=== PATIENT | female | born 1945 | race Caucasian/White ===

== ENCOUNTER → 2020-07-09 | Outpatient (CLI) | payer MEDICARE, BC ==
[2020-07-09 13:05] LABS: Basophils # (A) 0.1 k/uL (0-0.2); Basophils % (A) 1 %; Eosinophils # (A) 0.3 k/uL (0-0.7); Eosinophils % (A) 8 %; HCT 40.5 % (34.0-46.0); HGB 13.5 gm/dL (11.4-16.0); Lymphocytes # (A) 1.3 k/uL (1.0-4.8); Lymphocytes % (A) 39 %; MCH 33.4 pg (25.0-35.0); MCHC 33.3 g/dL (31.0-37.0); MCV 100.3 fL (80.0-100.0); Mean Platelet Volume 8.5; Monocytes # (A) 0.3 k/uL (0-1.0); Monocytes % (A) 8 %; Neutrophils # (A) 1.4 k/uL (1.3-7.7); Neutrophils % (A) 40 %; Platelet Count 185 k/uL (150-450); RBC 4.04 m/uL (3.80-5.40); RDW 12.4 % (11.5-15.5); WBC 3.5 k/uL (3.8-10.6)
[2020-07-09 13:19] LABS: INR 0.9 (<1.2); Partial Thromboplastin Time 23.1 sec (22.0-30.0); Prothrombin Time 9.7 sec (9.0-12.0)
[2020-07-09 13:29] LABS: Albumin 4.1 g/dL (3.5-5.0); Calcium 9.3 mg/dL (8.4-10.2); Potassium 4.9 mmol/L (3.5-5.1); Total Bilirubin 0.7 mg/dL (0.2-1.3); Total Protein 6.8 g/dL (6.3-8.2)
[2020-07-09 13:46] LABS: Appearance,Urine Clear (Clear); Bacteria,Urine Few /hpf; Bilirubin,Urine Negative (Negative); Blood,Urine Negative (Negative); Color,Urine Light Yellow; Glucose,Urine (UA) Negative (Negative); Ketones,Urine Negative (Negative); Leukocyte Esterase,Urine Small (Negative); Nitrite,Urine Negative (Negative); Protein,Urine Negative (Negative); RBC,Urine <1 /hpf (0-5); Specific Gravity,Urine 1.009 (1.001-1.035); Squamous Epithelial Cell,Urine 1 /hpf (0-4); Urobilinogen,Urine <2.0 mg/dL (<2.0); WBC,Urine 2 /hpf (0-5)
[2020-07-09 14:39] LABS: T4, Free (Free Thyroxine) 1.28 ng/dL (0.78-2.19)
== END | disposition home or self-care (01) ==
LOC: LABPAT 11:10
PROVIDERS: ATTEND Orthopaedic Surgery
DX: Z01.818 Encounter for other preprocedural examination (principal); Z01.812 Encounter for preprocedural laboratory examination; Z01.810 Encounter for preprocedural cardiovascular examination; Z51.81 Encounter for therapeutic drug level monitoring; M17.12 Unilateral primary osteoarthritis, left knee; Z79.01 Long term (current) use of anticoagulants; E03.9 Hypothyroidism, unspecified; E78.2 Mixed hyperlipidemia
CPT/HCPCS: 36415; 80053; 80061; 81001; 84439; 84443; 85025; 85610; 85730; 87070

== ENCOUNTER → 2020-07-09 | Outpatient (CLI) | payer MEDICARE, BC | END | disposition home or self-care (01) | LOC: LABWHC1 11:07 | PROVIDERS: ATTEND Internal Medicine | DX: Z53.9 Procedure and treatment not carried out, unspecified reason (principal) ==

== ENCOUNTER 2020-07-29 07:17 | Day surgery (SDC) | payer MEDICARE, BC ==
[2020-07-16 12:59] VITALS: BMI 36.3
[~2020-07-29 07:17] MED LIST: ACETAMINOPHEN TAB 500 MG TAB PO ONE; GABAPENTIN 300 MG CAP PO ONE; HYDROmorphone 0.5 MG/0.5 ML SYRINGE IVP PRN; MELOXICAM 7.5 MG TAB PO ONE; ONDANSETRON 4 MG/2 ML VIAL IVP ONE; TRANEXAMIC ACID 1,000 MG in SODIUM CHLORIDE 0.9% 100 ML IVPB ONE
[2020-07-29] MEDS ORDERED: MIDAZOLAM 2 MG/2 ML VIAL IV ONE (08:15)
[2020-07-29] MEDS ORDERED: DEXAMETHASONE SOD PHOSPHATE 4 MG/ML 1 ML VIAL IV ONE (08:35)
[2020-07-29] MEDS: LACTATED RINGERS 1,000 ML IV SCH (08:37)
[2020-07-29] MEDS ORDERED: HYDROmorphone 0.5 MG/0.5 ML SYRINGE IVP PRN ×3 (08:46)
[2020-07-29] MEDS ORDERED: NA PHOS,M-B/NA PHOS,DI-BA 133 ML ENEMA RECTAL PRN (08:46)
[2020-07-29] MEDS ORDERED: NALOXONE 0.4 MG/ML 1 ML VIAL IV PRN (08:46)
[2020-07-29] MEDS ORDERED: MAGNESIUM HYDROXIDE 2,400 MG/10 ML CUP PO PRN (08:46)
[2020-07-29] MEDS ORDERED: HYDROcodone/APAP 5-325MG 1 EACH TAB PO PRN (08:46)
[2020-07-29] MEDS ORDERED: bisacodyL 10 MG SUPP RECTAL PRN (08:46)
[2020-07-29] MEDS ORDERED: ONDANSETRON 4 MG/2 ML VIAL IVP PRN (08:46)
[2020-07-29] MEDS ORDERED: PROPOFOL 10 MG/ML 20 ML VIAL IV ONE (09:02)
[2020-07-29] MEDS ORDERED: SODIUM CHLORIDE 0.9% 100 ML BAG ONE (09:02)
[2020-07-29] MEDS ORDERED: MIDAZOLAM 2 MG/2 ML VIAL ONE (09:02)
[2020-07-29] MEDS ORDERED: fentaNYL (PF) 50 MCG/ML 2 ML AMP ONE (09:02)
[2020-07-29] MEDS ORDERED: TRANEXAMIC ACID 1,000 MG/10 ML VIAL ONE (09:02)
[2020-07-29] MEDS: ROPIVACAINE 246.25 MG, EPINEPHrine 0.5 MG, KETOROLAC 30 MG, cloNIDine HCL/PF 80 MCG, WA... MISCELLANE ONE ×10 (09:06→10:04)
[2020-07-29] MEDS ORDERED: ceFAZolin 3,000 MG in SODIUM CHLORIDE 0.9% IRRIGATIO 3,000 ML IRRIGATION ONE (09:07)
[2020-07-29] MEDS ORDERED: ROPIVACAINE 0.2%-NS ON-Q PUMP 1,090 MG, EMPTY PAIN BALL 1 EACH MISCELLANE PRN (09:43)
--- NOTE | 2020-07-29 09:46 | P.ANPRN ---
Procedure Note - Anesthesia - Nerve Block Performed Left Adductor Canal Infusion Time Out Performed: Yes Date of Procedure: 07/29/20 Procedure Start Time: 08:14 Procedure Stop Time: 08:24 Location of Patient: PreOp Indication: Acute Post-Operative Pain, Requested by Surgeon Sedation Type: Sedate with meaningful contact maintained Preparation: Sterile Prep, Sterile Dressing Position: Supine Catheter: Indwelling Needle Types: Pajunk Needle Gauge: 21 Ultrasound used to visualize needle placement: Yes Ultrasound used to observe medication spread: Yes Blood Aspirated: No Pain Paresthesia on Injection Noted: No Resistance on Injection: Normal Image Stored and Saved: Yes Events: Uneventful and Well Tolerated (ropi .5% 20 cc plus dexamethasone 4mg)
--- NOTE | 2020-07-29 10:16 | P.OP ---
Date of Procedure: 07/29/20 Preoperative Diagnosis: Severe osteoarthritis left knee Postoperative Diagnosis: Severe osteoarthritis left knee Procedure(s) Performed: Left total knee arthroplasty Implants: Velasquez [employer] Nephew Journey II CR Oxinium cruciate retaining femoral component size 5, left Velasquez [employer]hew Journey left nonporous tibial baseplate size 3 Velasquez [employer] Nephew Journey II, XLPE Deep Dished articular insert, size 10 mm, Size 3-4 left Vel[employer] Journey BCS resurfacing oval patellar component, 29 mm All components were cemented using Palacos R bone cement.. The articulation is Oxinium on polyethylene. Anesthesia: spinal Surgeon: Jean-Pierre Wallace Patent Counsel #1: Gaby Olivas Estimated Blood Loss (ml): 30 Pathology: other (Bone and cartilage) Condition: stable Disposition: PACU Indications for Procedure: After failure of conservative treatment we discussed the surgical and nonsurgical treatment options at length. Patient wishes to proceed with a total knee arthroplasty. Complications specific to this procedure were discussed at length, including but not limited to infection, bleeding, stiffness, and nerve injury. Covid-19 was also discussed at length with the patient, and they are aware of the current policies and procedures. The patient was given the option of delaying surgery, but they elect to proceed knowing these risks. Patient is aware of all these complications and informed consent was obtained Operative Findings: The operative findings are consistent with severe osteoarthritis of the left knee Description of Procedure: Patient was seen in the preoperative area consent was reviewed and operative site was marked with a skin marker. An adductor canal pain catheter was placed by anesthesia in the preoperative area. Patient was then brought to the operating room and given preoperative antibiotics intravenously. A spinal anesthetic was administered by the anesthesia department. A tourniquet was placed on the upper thigh and the lower extremity was prepped and draped in usual sterile fashion. A gram of transexamic acid was given. A universal timeout was then performed which confirmed the patient's name, surgical site, ALLERGIES, and consent. The lower extremity was then exsanguinated and tourniquet was inflated to 250 mmHg. A standard and anterior midline approach to the knee was performed. The skin and subcutaneous tissue was dissected down to the patellar tendon. A medial parapatellar arthrotomy was then performed. The knee was then extended, the patellar was everted, and the knee was again flexed. The patellar fat pad was removed in order to enhance exposure. Anterior horns of both menisci were excised, and a release was performed to the posterior medial aspect of the knee. On gross visual inspection, there was complete loss of articular cartilage in the medial and patellofemoral joint spaces. There was also significant cartilage damage in the lateral compartment. There were multiple periarticular osteophytes which were then removed with a Ronguer. The femoral canal was then opened with the 9.5 mm intramedullary drill. The 8 mm intramedullary cintia was then inserted into the femoral canal. The distal femoral cutting guide was then placed and set for 5 of valgus. The distal femoral cutting block was then pinned in place. The intramedullary cintia was then removed, and the distal femur was then cut. The cutting block was then removed and the cut was checked for symmetry. Next, the sizing guide was then placed and set for 3 external rotation based off of the epicondylar axis and Whitesides line. Pins were then placed and the drill holes, and the femur was sized with the sizing stylus. The pins were then removed, and the sizing guide was then removed. The spikes of the femoral block was then placed into the predrilled holes, and malleted into place. Two 45 mm pins were then placed into the fixation holes on the cutting block. An edison wing was then used to ensure there would be no notching with the anterior cut. The anterior condyles were cut without notching. The anterior cord cut was then performed, followed by the posterior cut, posterior chamfer cut, and the anterior chamfer cut. The collateral ligaments were protected during the entire process. The cutting block was then removed, and the femoral canal was plugged with autologous bone. Attention was then directed to the tibia. The remaining ACL was removed with a Ronguer, and the tibia was then gently subluxed forward with a large bent knee retractor. Any remaining menisci was excised. The posterior lateral corner was cauterized in order to cauterize the lateral geniculate artery. The extra medullary tibial cutting guide was then placed, set for the appropriate rotation, slope, and depth of resection. The proximal tibia cutting guide was then pinned in place. Proximal tibia was then cut and sized. Next trials were then placed with the appropriate-sized insert. The knee was able to fully extend and flex to 130 and was stable throughout all range of motion. The knee was then extended, patella everted. Patella was then measured, and then using an osteotomy guide, the patella was cut at the appropriate level. The patella was then measured and drilled and the patella trial was then placed. The knee was then taken through range of motion with the patella trial and the patella tracked normally. The knee was then extended patella trial was then removed and the patella was everted. Knee was then flexed and lug holes were drilled through the femoral trial and the femoral trial was then removed. The tibial was then exposed, and the tibial broach guide was then pinned in place after it was set for the appropriate rotation to allow for the most coverage without overhang. The tibia was then reamed and broached. The cut surfaces of bone were then irrigated with pulsatile lavage. The posterior structures were injected with the ropivacaine solution. The knee was also irrigated with Irrisept solution. The components were then opened, the cement was mixed, and the components were then cemented in place. The cement was allowed to harden with the knee in full extension. While the cement was hardening, the remaining soft tissues were then injected with a ropivacaine solution, which consisted of 246.25 mg of ropivacaine, 0.5 mg of epinephrine, 30 mg of Toradol, 80 g of clonidine, and 48.45 mL of sterile water, for a total of 100 mL of fluid injected. After the cemented hardened. The tourniquet was released, and hemostasis was obtained. A second gram of transexamic acid was given. The knee was again irrigated. The knee was again taken through range of motion and found to be stable throughout all range of motion of 0-130, and the patella tracked normally. The fascia was then closed with #2 strata fix suture. The subcutaneous tissue was closed with 3-0 Vicryl and 3-0 strata fix. Dermabond glue was used for the skin and placed with the knee in flexion. The patient was placed in a sterile silver dressing. Patient was then transferred to recovery room in stable condition. The assistant professor of music DEMETRIUS Hogan was required due the complexity surgery and the need for a skilled surgical scrub technician. She assisted in positioning, draping, retraction, and closure of the wound.
--- NOTE | 2020-07-29 11:15 | XR ---
EXAMINATION TYPE: XR knee limited LT DATE OF EXAM: 07/29/2020 CLINICAL HISTORY: Left knee pain and arthritis status post total knee replacement. TECHNIQUE: Portable AP and crosstable lateral views of the left knee are obtained immediately postop eratively. COMPARISON: None FINDINGS: Metallic hardware from total left knee arthroplasty is seen and appears satisfactory in al ignment and position. There is evidence of recent surgery with diffuse subcutaneous gas and soft tis jody swelling noted. IMPRESSION: METALLIC HARDWARE FROM TOTAL LEFT KNEE ARTHROPLASTY IS SATISFACTORY IN ALIGNMENT.
[2020-07-29] MEDS: SODIUM CHLORIDE 0.9% 1,000 ML IV SCH ×2 (20:14→20:26)
[2020-07-29] MEDS: ASPIRIN 325 MG TAB PO SCH (20:21)
[2020-07-29] MEDS ORDERED: SENNOSIDES-DOCUSATE SODIUM 1 EACH TAB PO SCH (21:00)
[2020-07-30] MEDS: HYDROcodone/APAP 5-325MG 1 EACH TAB PO PRN ×2 (00:42→07:54)
[2020-07-30 01:26] VITALS: TEMP 97.9
[2020-07-30] MEDS: LACTATED RINGERS 1,000 ML IV SCH (05:00)
[2020-07-30] MEDS ORDERED: LORATADINE 10 MG TAB PO PRN (06:54)
[2020-07-30] MEDS ORDERED: DICYCLOMINE 20 MG TAB PO PRN (06:54)
[2020-07-30 06:55] LABS: Basophils % (A) 0 %; Eosinophils % (A) 0 %; HCT 33.5 % (34.0-46.0); HGB 11.2 gm/dL (11.4-16.0); Lymphocytes # (A) 1.1 k/uL (1.0-4.8); Lymphocytes % (A) 17 %; MCH 33.9 pg (25.0-35.0); MCHC 33.4 g/dL (31.0-37.0); MCV 101.4 fL (80.0-100.0); Mean Platelet Volume 8.6; Monocytes # (A) 0.5 k/uL (0-1.0); Monocytes % (A) 8 %; Neutrophils # (A) 4.5 k/uL (1.3-7.7); Neutrophils % (A) 74 %; Platelet Count 164 k/uL (150-450); RDW 12.3 % (11.5-15.5); WBC 6.1 k/uL (3.8-10.6)
--- NOTE | 2020-07-30 07:23 | P.PN ---
Progress Note - Text 07/30/20 640am 75-year-old female status post total knee replacement. Patient has an On-Q pump for postop pain control with the solution running at 8 mL an hour with a VAS of 0. Plan to continue On-Q pump infusion
[2020-07-30 07:28] VITALS: BP 130/82; PULSE 52; RESP 16
[2020-07-30] MEDS ORDERED: PANTOPRAZOLE 40 MG TABLET PO SCH (07:30)
[2020-07-30] MEDS: ASPIRIN 325 MG TAB PO SCH (07:50)
[2020-07-30] MEDS ORDERED: NON FORMULARY DRUG (Biotin [Biotin] 10,000 MCG Capsule) PO SCH (09:00)
[2020-07-30] MEDS ORDERED: PREGABALIN 75 MG CAP PO SCH (09:00)
[2020-07-30] MEDS ORDERED: MONTELUKAST 10 MG TAB PO SCH (09:00)
[2020-07-30] MEDS ORDERED: ASCORBIC ACID 500 MG TAB PO SCH (09:00)
[2020-07-30] MEDS ORDERED: LEVOTHYROXINE 50 MCG TAB PO SCH (09:00)
[2020-07-30] MEDS ORDERED: MELOXICAM 7.5 MG TAB PO SCH (09:00)
[2020-07-30] MEDS ORDERED: NON FORMULARY DRUG (Vitamin B Complex [Vitamin B Complex] 1 EACH Capsule) PO SCH (09:00)
[2020-07-30] MEDS ORDERED: CHOLECALCIFEROL 1,000 UNIT TAB PO SCH (09:00)
--- NOTE | 2020-07-30 15:34 | P.DS ---
Providers Expected date of discharge: 07/30/20 Attending physician: Jean-Pierre Wallace Consults: 07/29/20 08:46 Consult Physician Routine Consulting Provider: Lashae Owens Consult Reason/Comments: medical management Do you want consulting provider notified?: Yes Primary care physician: Lashae Owens - Discharge Diagnosis(es) (1) Osteoarthritis of left knee Status: Acute (2) S/P total knee arthroplasty Status: Acute Hospital Course: This is a 75-year-old female with known history of degenerative arthritis of the left knee. The patient presents for evaluation. After discussion and consideration patient elects to proceed with total knee arthroplasty. The patient is seen preoperatively by Dr. Wallace and medically cleared for surgery by their primary care physician. Patient is admitted to [facility] on 07/29/2020 for total knee arthroplasty. The procedure is performed without complication or sequelae. The patient is doing well postoperatively. Labs and vital signs are stable on day of discharge. On day of discharge patient's knee incision is healing well. There is minimal erythema. There is no drainage noted at this time. There is minimal soft tissue swelling to the knee. Patient has full foot and ankle motion without difficulty or pain. Calf is soft and nontender to palpation. Neurovascular status to the left lower extremity is intact. Patient is discharged home in good condition. Opioid start talking form is reviewed and signed. Please see med rec for accurate list of home medications. Plan - Discharge Summary Discharge Rx Participant: Yes New Discharge Prescriptions: New Aspirin 325 mg PO BID #60 tab HYDROcodone/APAP 5-325MG [[place] 5-325] 1 - 2 tab PO Q6HR PRN #48 tab PRN Reason: Pain Sennosides [Senokot] 2 tab PO DAILY PRN #60 tablet PRN Reason: Constipation No Action Montelukast [Singulair] 10 mg PO DAILY Cholecalciferol [Vitamin D3 (25 Mcg = 1000 Iu)] 2,000 unit PO DAILY Cetirizine HCl [Zyrtec] 10 mg PO DAILY PRN PRN Reason: allergies Aspirin 81 mg PO DAILY Levothyroxine Sodium [Synthroid] 50 mcg PO DAILY Dicyclomine [Bentyl] 20 mg PO QID PRN PRN Reason: abdominal pain Atorvastatin [Lipitor] 10 mg PO HS Vitamin B Complex 1 each PO DAILY Pregabalin [Lyrica] 75 mg PO DAILY Pantoprazole Sodium [Protonix] 40 mg PO DAILY Biotin 10,000 mcg PO DAILY Ascorbic Acid [Vitamin C] 2,000 mg PO DAILY Discharge Medication List Ascorbic Acid [Vitamin C] 2,000 mg PO DAILY 07/16/20 [History] Aspirin 81 mg PO DAILY 07/16/20 [History] Atorvastatin [Lipitor] 10 mg PO HS 07/16/20 [History] Biotin 10,000 mcg PO DAILY 07/16/20 [History] Cetirizine HCl [Zyrtec] 10 mg PO DAILY PRN 07/16/20 [History] Cholecalciferol [Vitamin D3 (25 Mcg = 1000 Iu)] 2,000 unit PO DAILY 07/16/20 [History] Dicyclomine [Bentyl] 20 mg PO QID PRN 07/16/20 [History] Levothyroxine Sodium [Synthroid] 50 mcg PO DAILY 07/16/20 [History] Montelukast [Singulair] 10 mg PO DAILY 07/16/20 [History] Pantoprazole Sodium [Protonix] 40 mg PO DAILY 07/16/20 [History] Pregabalin [Lyrica] 75 mg PO DAILY 07/16/20 [History] Vitamin B Complex 1 each PO DAILY 07/16/20 [History] Aspirin 325 mg PO BID #60 tab 07/30/20 [Rx] HYDROcodone/APAP 5-325MG [[place] 5-325] 1 - 2 tab PO Q6HR PRN #48 tab 07/30/20 [Rx] Sennosides [Senokot] 2 tab PO DAILY PRN #60 tablet 07/30/20 [Rx] Follow up Appointment(s)/Referral(s): Gaby Olivas PAC [PHYSICIAN SENIOR JAVASCRIPT DEVELOPER] - 08/12/20 2:15 pm Lashae Owens MD [Primary Care Provider] - 07/31/20 11:30 am () [facility], [NON-STAFF] - As Needed Ambulatory/Diagnostic Orders: Continuous Passive Motion (CPM) Machine [DME.AMB1] Time Frame: 3 Weeks, Location: None Selected Patient Instructions/Handouts: *Surgery [facility] - On-Q Pain Pump Discharge Instructions, Knee Replacement (DC) Activity/Diet/Wound Care/Special Instructions: Please keep dressing clean, dry and intact. Dressing may be removed in 10 days by you or the home care nurse. Weightbearing as tolerated to the left lower extremity with a walker. CPM 5-6 hours daily. Please take Aspirin 325mg twice daily for 30 days to prevent blood clots. Recommend taking a stool softener along with the pain medication to prevent constipation. Please wear compression stockings daily until follow up to help prevent DVT. May remove at night when sleeping. Please follow up with [facility] and call with any questions or concerns, . Discharge Disposition: HOME WITH HOME HEALTH SERVICES
[2020-07-30] MEDS ORDERED: ATORVASTATIN 10 MG TAB PO SCH (21:00)
--- NOTE | 2020-08-01 04:51 | P.CONS ---
History of Present Illness - Reason for Consult Consult date: 07/30/20 Medical management Requesting physician: Jean-Pierre Wallace - Chief Complaint Post left TKA. - History of Present Illness This is a 75 year old female with a previous medical history significant for CAD post PCI of the LAD back in 2013, hyperlipidemia, hypothyroidism, allergic rhinitis and osteoarthritis in the left knee, has had arthroscopic knee surgery in the past but now she could not carry on her activity of daily living without pain, so she underwent left TKA that was done yesterday by and we were asked to see her for medical management. Review of Systems Constitutional: Denies anorexia, Denies chronic headaches, Denies malaise, Denies weight gain Eyes: denies blurred vision Ears, nose, mouth and throat: Denies dysphagia, Denies neck lump, Denies sore throat Cardiovascular: Denies chest pain, Denies decreased exercise tolerance, Denies dyspnea on exertion, Denies lightheadedness, Denies rapid heart beat, Denies shortness of breath Respiratory: Denies congestion, Denies cough with sputum, Denies home oxygen, Denies sleep apnea, Denies snoring, Denies wheezing Gastrointestinal: Denies abdominal pain, Denies BRBPR, Denies change in bowel habits, Denies heartburn, Denies melena, Denies nausea, Denies vomiting Genitourinary: Denies dysuria, Denies nocturia Menstruation: Reports postmenopausal Musculoskeletal: Reports gait dysfunction Musculoskeletal: left: knee pain, knee stiffness, absent: ankle pain, ankle stiffness, ankle swelling, elbow pain, elbow stiffness, elbow swelling, foot pain, foot stiffness, foot swelling, hand pain, hand stiffness, hand swelling, hip pain, hip stiffness, hip swelling, knee swelling, shoulder pain, shoulder stiffness, shoulder swelling, wrist pain, wrist stiffness, wrist swelling Integumentary: Denies pruritus, Denies rash Neurological: Denies numbness, Denies weakness Psychiatric: Denies anxiety, Denies depression Endocrine: Denies fatigue, Denies weight change Past Medical History Past Medical History: Coronary Artery Disease (CAD), CVA/TIA, GERD/Reflux, Hyperlipidemia, Osteoarthritis (OA), Thyroid Disorder Additional Past Medical History / Comment(s): TIA 2017-no residual effects, IBS, hard to lay flat because of back History of Any Multi-Drug Resistant Organisms: None Reported Past Surgical History: Back Surgery, Cholecystectomy, Heart Catheterization With Stent (left heart catherization with PCI of the LAD in 2013), Hysterectomy, Orthopedic Surgery, Tonsillectomy Additional Past Surgical History / Comment(s): left thumb hand surg., right knee replaced, L5-S1 fusion, epiretinal membrane surgery in the left eyein 2011,PRK eye surgery in 2005,EGD in 2017, colonoscopy in 2015,Tonsillectomy, left arthroscopic knee surgery Past Anesthesia/Blood Transfusion Reactions: No Reported Reaction Date of Last Stent Placement:: 2013 Smoking Status: Former smoker - Past Family History Father Family Medical History: Cancer (Father at the age of 69 from Esophageal cancer.) Mother Family Medical History: AFIB (Mother at the age of 91 and had atrial fibrillation.) Brother(s) Family Medical History: Unable to Obtain (one brother with medical issues.) Daughter(s) Family Medical History: No Reported History (one daughter with no health issues.) Son(s) Family Medical History: No Reported History (one son with no health issues.) Medications and Allergies Home Medications Medication Instructions Recorded Confirmed Type Ascorbic Acid [Vitamin C] 2,000 mg PO DAILY 07/16/20 07/29/20 History Aspirin 81 mg PO DAILY 07/16/20 07/29/20 History Atorvastatin [Lipitor] 10 mg PO HS 07/16/20 07/29/20 History Biotin 10,000 mcg PO DAILY 07/16/20 07/29/20 History Cetirizine HCl [Zyrtec] 10 mg PO DAILY PRN 07/16/20 07/29/20 History Cholecalciferol [Vitamin D3 (25 2,000 unit PO DAILY 07/16/20 07/29/20 History Mcg = 1000 Iu)] Dicyclomine [Bentyl] 20 mg PO QID PRN 07/16/20 07/29/20 History Levothyroxine Sodium [Synthroid] 50 mcg PO DAILY 07/16/20 07/29/20 History Montelukast [Singulair] 10 mg PO DAILY 07/16/20 07/29/20 History Pantoprazole Sodium [Protonix] 40 mg PO DAILY 07/16/20 07/29/20 History Pregabalin [Lyrica] 75 mg PO DAILY 07/16/20 07/29/20 History Vitamin B Complex 1 each PO DAILY 07/16/20 07/29/20 History Aspirin 325 mg PO BID #60 tab 07/30/20 Rx HYDROcodone/APAP 5-325MG [[place] 1 - 2 tab PO Q6HR PRN #48 tab 07/30/20 Rx 5-325] Sennosides [Senokot] 2 tab PO DAILY PRN #60 tablet 07/30/20 Rx Allergies Allergy/AdvReac Type Severity Reaction Status Date / Time doxycycline Allergy Unknown Verified 07/29/20 07:56 Sulfa (Sulfonamide Allergy Rash/Hives Verified 07/29/20 07:56 Antibiotics) Physical Exam Vitals: Vital Signs Temp Pulse Pulse Resp BP BP Pulse Ox 07/30/20 00:30 97.9 F 57 L 14 147/73 96 07/29/20 19:51 97.4 F L 68 14 157/88 95 07/29/20 18:07 97.9 F 61 16 154/85 97 07/29/20 17:38 60 16 157/69 97 07/29/20 16:30 66 16 133/66 97 07/29/20 15:30 65 16 131/65 95 07/29/20 14:30 61 16 127/62 95 07/29/20 13:30 63 16 131/57 96 07/29/20 13:15 61 16 140/63 98 07/29/20 13:00 62 16 133/61 96 07/29/20 12:45 61 16 142/63 98 07/29/20 12:30 61 16 150/65 98 07/29/20 12:15 63 16 148/66 98 07/29/20 12:00 70 16 158/105 96 07/29/20 11:45 69 16 145/68 97 07/29/20 11:30 68 16 152/67 97 07/29/20 11:15 63 16 153/67 99 07/29/20 11:02 71 16 155/69 98 07/29/20 10:47 97.9 F 79 16 132/58 94 L 07/29/20 08:26 58 L 16 132/60 58 L 07/29/20 07:53 97.7 F 54 L 16 152/65 96 Intake and Output 07/29/20 07/29/20 07/30/20 14:59 22:59 06:59 Intake Total 851 Output Total 30 Balance 821 Intake: IV 851 Output: Estimated Blood Loss 30 Other: Voiding Method Toilet # Voids 1 1 Weight 91.3 kg Physical examination: HEENT: head is atraumatic normocephalic pupils were equal round reactive to light and accommodations, extra ocular muscle movements were inatct. Neck: supple no JVP. Chest: clear to auscultation bilaterally, there is no crackles or wheezes, no chest wall tenderness or intercostal retractions. Heart: first heart sound is depressed, second heart sound is normal there is DENISE 2/6 located in the left sternal border. Abdomen: soft non tender, non distended positive bowel sounds. Extremities: there is no edema no calf tenderness DP +2 bilaterally, the left knee is covered with dressing there is on Q pump in the left thigh. Neurologic examination: patient s awake alert and oriented X 3 CN II-XII are grossly intact, muscle power 4/5 in upper and lower extremities bilaterally. Results CBC & Chem 7: 07/30/20 06:27 Assessment and Plan Assessment: Assessment and plan: 1. POD # 1 post left TKA. we will continue with incentive spirometer to reduce the incidence of atelectasis and health care associated pneumonia, we will continue with current pain management as outlined by orthopedic surgery, and DVT prophylaxis, and PT evaluation . 2. CAD post PCI of the LAD. we will continue with ASA and Lipitor 10 mg orally daily. 3. Hyperlipidemia. we will continue with Lipitor 10 mg orally daily. 4. Hypothyroidism. we will continue with Synthroid 50 mcg orally daily. 5. IBS. we will continue with Dicyclomine 20 mg orally 4 times a day as needed. 6. Allergic rhinitis. we will continue with Montelukast 10 mg orally daily and Zyrtec 10 mg orally daily. 7. Vitamin D deficiency. we will continue with vitamin D supplement. 8. DVT prophylaxis. we will continue with current ASA 325 mg orally bid for 1 month. 9. GI prophylaxis. we will continue with PPI. 10. Thank you for the consult and we will follow with you.
== END 2020-07-30 10:49 | disposition home health service (06) ==
LOC: OR 07:17 → 4SSUR 10:44 → OR 07-30 10:49
PROVIDERS: ATTEND Orthopaedic Surgery
DX: M17.12 Unilateral primary osteoarthritis, left knee (principal); M21.062 Valgus deformity, not elsewhere classified, left knee; I10 Essential (primary) hypertension; I34.0 Nonrheumatic mitral (valve) insufficiency; I25.10 Atherosclerotic heart disease of native coronary artery without angina pectoris; E78.5 Hyperlipidemia, unspecified; E03.9 Hypothyroidism, unspecified; E66.3 Overweight; Z96.651 Presence of right artificial knee joint; Z90.710 Acquired absence of both cervix and uterus; Z97.3 Presence of spectacles and contact lenses; Z88.2 Allergy status to sulfonamides; Z98.890 Other specified postprocedural states; Z87.891 Personal history of nicotine dependence; Z88.1 Allergy status to other antibiotic agents; Z79.82 Long term (current) use of aspirin; Z79.899 Other long term (current) drug therapy; Z79.890 Hormone replacement therapy; Z68.37 Body mass index [BMI] 37.0-37.9, adult; Z82.49 Family history of ischemic heart disease and other diseases of the circulatory system; Z90.49 Acquired absence of other specified parts of digestive tract
CPT/HCPCS: 97110; 97161; 64448; 76942; 85025; 88300; 73560; 27447; C1713; C1776; J2250; J0171; J1100; J0690 ×3; J2405; J3010; J1885; J2795 ×2; J2704; J0735

== ENCOUNTER → 2021-05-08 | Outpatient (CLI) | payer MEDICARE, BC ==
--- NOTE | 2021-05-08 12:43 | XR ---
EXAMINATION TYPE: XR foot complete LT, 3 views DATE OF EXAM: 05/08/2021 Comparison: None Clinical History: 76-year-old female fifth digit pain for one week, G57.62 Findings: There is hallux valgus deformity with bunion and mild degenerative change first MTP joint. No acute f racture, subluxation, or dislocation. Osteopenia. Small plantar heel spur. Impression: Hallux valgus deformity with bunion and mild first MTP joint OA. Osteopenia. Plantar heel spur. No ac fran osseous abnormality seen.
== END | disposition home or self-care (01) ==
LOC: RADXRMAIN 10:43
PROVIDERS: ATTEND Internal Medicine
DX: M19.072 Primary osteoarthritis, left ankle and foot (principal); M85.872 Other specified disorders of bone density and structure, left ankle and foot; M77.32 Calcaneal spur, left foot; M20.12 Hallux valgus (acquired), left foot; G57.62 Lesion of plantar nerve, left lower limb

== ENCOUNTER → 2021-10-28 | Outpatient (CLI) | payer MEDICARE, BC ==
--- NOTE | 2021-10-28 12:04 | US ---
EXAMINATION TYPE: US kidneys/renal and bladder DATE OF EXAM: 10/28/2021 COMPARISON: NONE CLINICAL HISTORY: N18.2 CKD STAGE 2. EXAM MEASUREMENTS: Right Kidney: 9.7 x 4.0 x 3.7 cm Left Kidney: 9.8 x 4.6 x 4.5 cm Post Void Residual Volume: 53.4 mL Right Kidney: No hydronephrosis or masses seen Left Kidney: No hydronephrosis or masses seen Bladder: wnl Bilateral Jets seen: yes Normal Post Void Residual: no, as volume is greater than 50.0ml. There is no evidence for hydronephrosis at this point in time. No nephrolithiasis is seen. No zandra s are identified. The urinary bladder is anechoic. Bilateral ureteral jets are seen. IMPRESSION: No hydronephrosis is seen bilaterally.
== END | disposition home or self-care (01) ==
LOC: RADUSWWP 11:06
PROVIDERS: ATTEND Internal Medicine
DX: N18.2 Chronic kidney disease, stage 2 (mild) (principal)
CPT/HCPCS: 76770

== ENCOUNTER → 2021-10-28 | Outpatient (CLI) | payer MEDICARE, BC ==
[2021-10-28 18:20] LABS: Basophils # (A) 0.07 X 10*3/uL (0.00-0.10); Basophils % (A) 1.8 %; Eosinophils # (A) 0.29 X 10*3/uL (0.04-0.35); Eosinophils % (A) 7.4 %; HCT 38.3 % (37.2-46.3); HGB 12.7 g/dL (12.0-15.0); Lymphocytes # (A) 1.39 X 10*3/uL (0.90-5.00); Lymphocytes % (A) 35.3 %; MCH 33.2 pg (27.0-32.0); MCHC 33.2 g/dL (32.0-37.0); Mean Platelet Volume 11.8 fL (9.5-12.2); Monocytes # (A) 0.48 X 10*3/uL (0.20-1.00); Monocytes % (A) 12.2 %; Neutrophils # (A) 1.69 X 10*3/uL (1.80-7.70); Neutrophils % (A) 42.8 %; Platelet Count 187 X 10*3/uL (140-440); RBC 3.83 X 10*6/uL (4.10-5.20); RDW 12.9 % (11.5-14.5); WBC 3.94 X 10*3/uL (4.50-10.00)
[2021-10-28 18:47] LABS: % Iron Saturation 27.37 (12.00-45.00); T4, Free (Free Thyroxine) 1.73 ng/dL (0.800-1.800)
== END | disposition home or self-care (01) ==
LOC: LABWHC1 11:08
PROVIDERS: ATTEND Physician Assistant Medical
DX: L82.0 Inflamed seborrheic keratosis (principal); L65.9 Nonscarring hair loss, unspecified; L53.8 Other specified erythematous conditions
CPT/HCPCS: 36415; 82306; 82652; 83540; 83550; 84439; 84443; 85025

== ENCOUNTER → 2021-11-14 | Outpatient (CLI) | payer MEDICARE, BC ==
--- NOTE | 2021-11-15 21:25 | CT ---
EXAMINATION TYPE: CT lumbar spine wo con DATE OF EXAM: 11/14/2021 COMPARISON: None HISTORY: lower back pain and down right leg TECHNIQUE: CT scan of the lumbar spine performed without contrast CT DLP: 1689.1 mGycm Automated exposure control for dose reduction was used. FINDINGS: There are 5 nonrib-bearing lumbar-type vertebral bodies. There is increased lumbar lordosis body heig hts are maintained. No acute fracture or dislocation seen. There is anterior approach fusion of L5-S1 with intervertebral disc spacer, ventral plate and a screw in L5 and a screw in S1. L5 is slightly translated anteriorly over S1. Severe narrowing of the inter vertebral spaces at L4-5 and L5-S1. There is moderate narrowing involving the remaining visualized in tervertebral spaces. There are disc degenerative changes at T12-L1, L1-2, L3-4, L4-5. Bony spinal can al stenosis is seen. Endplate degenerative changes are seen in L4, L5 and S1. Facet joint arthropathy seen in the lower thoracic and lumbar spine but appears most prominent at L4-5 and L5-S1. There is m ild bony neural foraminal narrowing at L4-5 and L5-S1 bilaterally. Disc herniation or bulging is susp ected at L3-4 and L4-5. There is mild atrophy of the paraspinal musculature. Mild osteoarthritic pichardo ges are seen in the sacroiliac joints. Scattered wall calcifications are seen in the distal intrathoracic aorta and abdominal aorta. Calcifi cations extend into the common iliac arteries. A segment of the sigmoid colon is seen on this study and demonstrates scattered diverticula without a ssociated inflammatory changes. IMPRESSION: POSTSURGICAL CHANGES AT L5-S1 AND VARIABLE DEGREES OF DEGENERATIVE CHANGES INVOLVING THE LOWER THORAC IC AND LUMBAR SPINE DESCRIBED ABOVE. No acute osseous abnormality seen.
== END | disposition home or self-care (01) ==
LOC: RADCTMAIN 18:20
PROVIDERS: ATTEND Neurological Surgery
DX: M54.16 Radiculopathy, lumbar region (principal)
CPT/HCPCS: 72131

== ENCOUNTER 2021-11-18 08:37 | Day surgery (SDC) | payer MEDICARE, BC ==
[~2021-11-18 08:37] MED LIST changes: -ACETAMINOPHEN TAB 500 MG TAB PO ONE; -GABAPENTIN 300 MG CAP PO ONE; -HYDROmorphone 0.5 MG/0.5 ML SYRINGE IVP PRN; +LACTATED RINGERS 1,000 ML IV SCH; +LIDOCAINE 1% (10MG/ML) FOR IV START INTRADERMA PRN; -MELOXICAM 7.5 MG TAB PO ONE; -ONDANSETRON 4 MG/2 ML VIAL IVP ONE; -TRANEXAMIC ACID 1,000 MG in SODIUM CHLORIDE 0.9% 100 ML IVPB ONE
[2021-11-18 09:03] VITALS: TEMP 97.2
[2021-11-18] MEDS ORDERED: PROPOFOL 10 MG/ML 20 ML VIAL IV ONE (09:18)
--- NOTE | 2021-11-18 09:35 | P.PCN ---
Date of Procedure: 11/18/21 Procedure(s) Performed: Brief history: Patient is a pleasant 76-year-old white female scheduled for an elective upper endoscopy as well as colonoscopy as a part of evaluation of long-standing history of GERD and screening for colon cancer Procedure performed: Esophagogastroduodenoscopy with biopsy Colonoscopy snare polypectomy Preoperative diagnosis: Long-standing history of GERD Screening for colon cancer Anesthesia: MAC Procedure: After informed consent was obtained from the patient was brought into the endoscopy unit and IV sedation was administered by anesthesia under continuous monitoring. Initially upper endoscopy was done. The Olympus GF 160 video endoscope was inserted inserted into the mouth and esophagus intubated without any difficulty and was gradually advanced into the stomach and duodenum and carefully examined. The bulb and second part of the duodenum appeared normal. The scope was then withdrawn into the stomach adequately insufflated with air and upon careful examination the antrum and body, cardia and fundus appeared normal. The scope was then withdrawn into the esophagus. The GE junction was located at 40 cm to the incisors. It appeared regular with no erythema erosions or ulcerations. Rest of the esophagus appeared normal. Patient tolerated the procedure well. At this time the patient continued to remain sedation. Initial digital rectal examination was normal. Olympus CF 160 video colonoscope was then inserted into the rectum and gradually advanced to the cecum without any difficulty. Careful examination was performed as the scope was gradually being withdrawn. The prep was excellent. The cecum, normal. In the ascending colon there was a 7 mm sessile polyp removed by snare polypectomy. ascending colon, transverse colon, descending colon, sigmoid colon and rectum appeared normal. At her sigmoid diverticulosis. Retroflexion was performed in the rectum and no lesions were noted. Patient tolerated the procedure well. Impression: 1. Upper endoscopy revealed small gastric polyps but no evidence of esophagitis or Martinez's 2. Colonoscopy revealed 7 mm ascending colon polyp status post polypectomy and scattered sigmoid diverticulosis Recommendations: Findings of this examination were discussed with the patient as well as her family. She was advised to follow with the biopsy results. Continue with Protonix 40 mg daily and follow a reflux measures. If the biopsy result adenoma she can have a repeat colonoscopy in 5 years.
[2021-11-18 09:42] VITALS: RESP 16
[2021-11-18 09:54] VITALS: BP 148/67; PULSE 57
== END 2021-11-18 10:17 ==
LOC: ORWHC2ENDO 08:37
PROVIDERS: ATTEND Internal Medicine Gastroenterology
DX: Z12.11 Encounter for screening for malignant neoplasm of colon (principal); D12.2 Benign neoplasm of ascending colon; K31.7 Polyp of stomach and duodenum; K57.30 Diverticulosis of large intestine without perforation or abscess without bleeding; I25.10 Atherosclerotic heart disease of native coronary artery without angina pectoris; Z87.891 Personal history of nicotine dependence; Z86.73 Personal history of transient ischemic attack (TIA), and cerebral infarction without residual deficits; K21.9 Gastro-esophageal reflux disease without esophagitis; Z79.82 Long term (current) use of aspirin; Z79.890 Hormone replacement therapy; Z79.899 Other long term (current) drug therapy; Z79.891 Long term (current) use of opiate analgesic; Z88.1 Allergy status to other antibiotic agents; Z88.2 Allergy status to sulfonamides
CPT/HCPCS: 88305; 45385; 43239; J2704

== ENCOUNTER → 2021-12-22 | Outpatient (CLI) | payer MEDICARE, BC ==
--- NOTE | 2021-12-22 19:31 | BD ---
EXAMINATION TYPE: Axial Bone Density DATE OF EXAM: 12/22/2021 COMPARISON: NONE CLINICAL HISTORY: 76 year old Female. ICD-10 CODE: M81.0 AGE RELATED OSTEOPOROSIS Height: 61 Weight: 215.1 FRAX RISK QUESTIONS: Alcohol (3 or more units per day): no Family History (Parent hip fracture): no Glucocorticoids (More than 3mos): no (Ex: prednisone, prednisolone, methylprednisolone, dexamethasone, and hydrocortisone). History of Fracture in Adulthood: no Secondary Osteoporosis: 1. Type 1 Diabetes: no 2. Hyperthyroidism: no 3. Menopause before 45: no 4. Malnutrition: no 5. Chronic liver disease: no Rheumatoid Arthritis: no Current Tobacco Use: no RISK FACTORS HISTORY OF: Surgery to Spine/Hip(right/left)/Wrist (right/left): no Family History of Osteoporosis: no Active: no Diet low in dairy products/other sources of calcium: yes Postmenopausal woman: yes Lost more than 2 inches in height since high school: no MEDICATIONS: Thyroid Medications: synthroid How Lon years Additional History: EXAM MEASUREMENTS: Bone mineral densitometry was performed using the [employer] System. Bone mineral density as measured about the Lumbar spine is: ----- L1-L4(G/cm2): 1.211 T Score Values are as follows: ----- L1: -1.0 ----- L2: -1.0 ----- L3: 0.4 ----- L4: 2.2 ----- L1-L4: 0.3 Bone mineral density : baseline Bone mineral density about the R hip (g/cm2): 1.000 Bone mineral density about the L hip (g/cm2): 0.922 T Score values are as follows: -----R Neck: -0.3 -----L Neck: -0.8 -----R Total: 0.3 -----L Total: -0.1 Bone mineral density baseline FRAX%s: The graph provided illustrates a 9.0% chance for a major osteoporotic fx and a 1.3% chance fo r the hips probability for fx in 10 years time. IMPRESSION: Normal (Values between +1 and -1 indicate normal bone mass). Consider repeating this study in 5 year s or sooner if there is some new clinical indication. NOTE: T-SCORE=SD OF THE YOUNG ADULT MEAN.
--- NOTE | 2021-12-23 13:06 | MM ---
Reason for exam: screening (asymptomatic). Last mammogram was performed 5 years ago. History: Patient is postmenopausal. Physical Findings: A clinical breast exam by your physician is recommended on an annual basis and results should be correlated with mammographic findings. MG 3D Screening Mammo W/Cad Bilateral CC and MLO view(s) were taken. Prior study comparison: December 15, 2016, mammogram, performed at [place]. May 12, 2016, mammogram, performed at [place]. February 26, 2015, mammogram, performed at [place]. There are scattered fibroglandular densities. There is chronic nodularity in the subareolar left breast. Small scattered oil cyst and secretory calcifications. Nodular asymmetric density lateral anterior right CC view appears larger and incompletely disperses on 3D. ASSESSMENT: Incomplete: need additional imaging evaluation, BI-RAD 0 RECOMMENDATION: Special view mammogram of the right breast. (3D) If lesion persists on supplemental views, image directed ultrasound is recommended. [facility] will attempt to contact patient to return for supplemental views and ultrasound if indicated.
== END | disposition home or self-care (01) ==
LOC: RADMAMWWP 10:26
PROVIDERS: ATTEND Internal Medicine
DX: Z12.31 Encounter for screening mammogram for malignant neoplasm of breast (principal); M81.0 Age-related osteoporosis without current pathological fracture
CPT/HCPCS: 77063; 77067; 77080

== ENCOUNTER → 2022-01-15 | Outpatient (CLI) | payer MEDICARE, BC ==
--- NOTE | 2022-01-15 19:39 | CT ---
EXAMINATION TYPE: CT angio chest DATE OF EXAM: 01/15/2022 COMPARISON: None HISTORY: Elevated D-dimer CT DLP: 512 mGycm Automated exposure control for dose reduction was used. CONTRAST: CTA scan of the thorax is performed with IV Contrast, patient injected with 66 ml mL of Isovue 370, p ulmonary embolism protocol. MIP images are created and reviewed. 3D reconstructed images are create d on an independent workstation and reviewed. FINDINGS: LUNGS: The lungs are grossly clear, there is no concerning parenchymal mass or nodule identified. Th ere is some interstitial changes at the lung bases. There is no pleural effusion or pneumothorax seen . The tracheobronchial tree is patent. AORTA: No additional significant abnormality is seen. MEDIASTINUM: There is satisfactory enhancement of the pulmonary artery and its branches, there is no CT evidence for pulmonary embolism. There are no greater than 1 cm hilar or mediastinal lymph nodes. No pericardial effusion is seen. Dense coronary artery calcifications are present OTHER: No there is thoracic spondylosis. Patient is post cholecystectomy. IMPRESSION: NO EVIDENT PULMONARY EMBOLISM, CORONARY ARTERY DISEASE. SOME MILD INTERSTITIAL LUNG DISEASE NOTED.
== END | disposition home or self-care (01) ==
LOC: RADCTMAIN 15:52
PROVIDERS: ATTEND Internal Medicine
DX: R79.1 Abnormal coagulation profile (principal)
CPT/HCPCS: 82565; 84520; 71275; 36415; Q9967

== ENCOUNTER → 2022-03-06 | Outpatient (CLI) | payer MEDICARE, BC ==
--- NOTE | 2022-03-08 14:29 | CT ---
11/14/2021 EXAMINATION TYPE: CT pelvis wo con DATE OF EXAM: 03/06/2022 COMPARISON: CT lumbar spine HISTORY: 76-year-old female Arthrodesis status TECHNIQUE: Contiguous axial scanning of the pelvis without IV contrast. Coronal and sagittal reconstr uctions performed. CT DLP: 1077.3 mGycm Automated exposure control for dose reduction was used. FINDINGS: Redemonstrated post surgical change of anterior and interbody lumbar fusion at L5-S1. There is extens carlos grade 1 anterolisthesis here. 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 Tra ce grade 1 retrolisthesis L3-L4 also noted. Mild circumferential bladder wall thickening may be chronic for the patient. Correlate to exclude und erlying cystitis. Mild to moderate stool burden. Mildly redundant sigmoid colon. Mild diverticulosis mid to distal sigmoid colon. No abnormal fluid collection in the pelvis or pelvic lymphadenopathy. There is mild degenerative change of both hips with marginal spurring and some small subchondral cyst s. 2 percutaneous screw fixation across the right SI joints appear intact. No acute fracture identified. Bony bridging is incomplete. Some mild capsular swelling and vacuum along the anterior-inferior aspe ct of the joint, referred axial image 38 IMPRESSION: 1. TWO PERCUTANEOUS SCREWS ACROSS THE RIGHT SI JOINT. BONY BRIDGING IS INCOMPLETE. THE HARDWARE APPEA RS INTACT. 2. POSTSURGICAL CHANGE L5-S1 ANTERIOR AND INTERBODY FUSION WITH FIXED GRADE 1 ANTEROLISTHESIS HERE. M ODERATE TO ADVANCED SPONDYLOTIC CHANGE VISUALIZED LOWER LUMBAR SPINE, SIMILAR TO 11/14/2021. 3. MILD DIVERTICULOSIS ALONG THE MID TO DISTAL SIGMOID COLON.
== END | disposition home or self-care (01) ==
LOC: RADCTMAIN 12:26
PROVIDERS: ATTEND Neurological Surgery
DX: Z98.1 Arthrodesis status (principal)
CPT/HCPCS: 72192